=== PATIENT | female | born 1955 | race American Indian/Alaskan Native ===

== ENCOUNTER 2021-08-04 13:49 | Inpatient (IN) | payer MEDICARE, OTHER ==
--- NOTE | 2021-08-04 14:20 | Emergency Department Report ---
ED General Adult HPI - General Stated complaint: HEMOGLOBIN LOW, ABD PAIN, ELEVATED BP Time Seen by Provider: 08/04/21 14:08 - History of Present Illness Initial comments: Patient presents from dialysis by ambulance secondary to a low blood count, elevated blood pressure, and left leg pain. While getting dialysis today, the staff noticed that her blood count was around 7. EMS states that it was her hemoglobin that was a 7. The patient was noted to have elevated blood pressure in the 200/100 range. She was complaining of left leg pain that was abrupt onset. Ultimately, they withdrew approximately 1.6 L of fluid, stop dialysis, and transported the patient here. Upon arrival, she is complaining of left leg pain. Pain was abrupt onset. There is no nausea or vomiting. There is no diarrhea. Pain does not radiate or migrate. It is sharp and stabbing. She has been anemic before. She states that that is not surprising to her. She is not having chest pain or shortness of breath. She states that she was told she needed a blood transfusion by the doctor at dialysis today. - Related Data Allergies Allergy/AdvReac Type Severity Reaction Status Date / Time codeine Allergy Unknown Verified 08/04/21 14:43 Iodinated Contrast Media Allergy Unknown Verified 08/04/21 14:43 iodine Allergy Unknown Verified 08/04/21 14:43 ED Review of Systems ROS: Stated complaint: HEMOGLOBIN LOW, ABD PAIN, ELEVATED BP Other details as noted in HPI Comment: All other systems reviewed and negative Constitutional: denies: fever Eyes: denies: eye pain ENT: denies: throat pain Respiratory: denies: cough Cardiovascular: denies: chest pain Endocrine: denies: unexplained weight loss Gastrointestinal: denies: vomiting, diarrhea Musculoskeletal: as per HPI Skin: denies: rash Neurological: denies: headache Hematological/Lymphatic: denies: easy bruising ED Past Medical Hx - Past Medical History Hx Hypertension: Yes Hx Renal Disease: Yes (On dialysis) Additional medical history: Anemia - Surgical History Past Surgical History?: Yes Additional Surgical History: AV fistula - Family History Family history: hypertension ED Physical Exam - General Limitations: No Limitations, Other (Pulse ox by EMS was noted and normal.) General appearance: alert, in distress (Mild to moderate discomfort) - Head Head exam: Present: atraumatic, normocephalic, normal inspection - Eye Eye exam: Present: normal appearance, EOMI. Absent: scleral icterus - ENT ENT exam: Present: normal exam, mucous membranes dry, normal external ear exam - Neck Neck exam: Present: normal inspection. Absent: meningismus - Respiratory Respiratory exam: Present: normal lung sounds bilaterally. Absent: respiratory distress - Cardiovascular Cardiovascular Exam: Present: regular rate, normal rhythm - GI/Abdominal GI/Abdominal exam: Present: soft. Absent: tenderness - Extremities Exam Extremities exam: Present: normal capillary refill, other (AV fistula with good thrill and bruit). Absent: calf tenderness - Back Exam Back exam: Present: tenderness (There is mild left lateral abdominal wall and side tenderness). Absent: CVA tenderness (R), CVA tenderness (L) - Neurological Exam Neurological exam: Present: alert, oriented X3, CN II-XII intact. Absent: motor sensory deficit - Psychiatric Psychiatric exam: Present: normal affect, normal mood - Skin Skin exam: Present: warm, dry ED Course Vital Signs 08/04/21 08/04/21 14:43 15:16 Temperature 98 F Pulse Rate 85 84 Respiratory 16 16 Rate Blood Pressure 241/108 Blood Pressure 233/92 [Left] O2 Sat by Pulse 95 94 Oximetry - Reevaluation(s) Reevaluation #1: 08/04/21 14:19 EMS was met upon arrival. IV labs ordered. Old records reviewed. Reevaluation #2: 08/04/21 15:14 Labs are pending. Reevaluation #3: 08/04/21 15:46 CBC was noted. We will proceed with admission. ED Medical Decision Making - Lab Data Result diagrams: 08/04/21 15:25 Rhythm strip: Normal sinus rhythm without ectopy per monitor observe 10 seconds. - Medical Decision Making Patient presented from dialysis secondary to flank pain, hypertension, and anemia. She was found and confirmed to have a hemoglobin of seven. Her supervisor [employer] wanted her transfused. Etiology for the left leg pain is unclear. Patient does not have any abdominal tenderness suggestive of diverticulitis. She does not appear to be septic or toxic per there is no pulsatile mass suggestive of referred pain from a AAA. Hypertension has improved and she is not hyper tensive. We will continue to monitor. Critical Care Time: No Critical care attestation.: If time is entered above; I have spent that time in minutes in the direct care of this critically ill patient, excluding procedure time. ED Disposition Clinical Impression: Left flank pain, ESRD (end stage renal disease) on dialysis, Uncontrolled hypertension Anemia, chronic renal failure Qualifiers: Chronic kidney disease stage: stage 5 Qualified Code(s): N18.5 - Chronic kidney disease, stage 5; D63.1 - Anemia in chronic kidney disease Disposition: 09 ADMITTED INPATIENT Is pt being admited?: Yes Condition: Stable Instructions: Hypertension (ED)
[2021-08-04] MEDS ORDERED: fentaNYL 100 MCG/2 ML INJ ONE (14:53)
[2021-08-04] MEDS ORDERED: fentaNYL 100 MCG/2 ML INJ IV NR (15:00)
[2021-08-04] MEDS ORDERED: hydrALAZINE 20 MG/1 ML INJ IV ONE ×3 (15:21→22:10)
[2021-08-04 15:38] LABS: Hematocrit 21.6 % (30.3-42.9); Mean Corpuscular HGB Conc 32 % (30-34); Mean Corpuscular Volume 82 fl (79-97); Platelet Count 259 K/mm3 (140-440); Red Blood Count 2.64 M/mm3 (3.65-5.03); Red Cell Distribution Width 17.7 % (13.2-15.2)
[2021-08-04] MEDS ORDERED: MORPHINE 4 MG/1 ML INJ IV ONE (15:54)
[2021-08-04 15:56] LABS: Calcium 9.4 mg/dL (8.4-10.2)
[2021-08-04] MEDS ORDERED: SODIUM CHLORIDE 0.9% 500 ML 500 ML IV ONE (16:05)
[2021-08-04] MEDS ORDERED: guaiFENesin DM 200/20 MG ORAL LIQD 10 ML PO PRN (21:11)
[2021-08-04] MEDS ORDERED: hydrALAZINE 20 MG/1 ML INJ IV PRN ×2 (22:11→23:15)
[2021-08-04] MEDS ORDERED: MORPHINE 2 MG/1 ML INJ IV ONE (22:50)
[2021-08-04] MEDS ORDERED: METOCLOPRAMIDE 10 MG/2 ML INJ IV PRN (23:08)
[2021-08-04] MEDS ORDERED: ACETAMINOPHEN 325 MG TAB PO PRN (23:08)
[2021-08-04] MEDS ORDERED: oxyCODONE /ACETAMINOPHEN 5-325MG TAB PO PRN (23:08)
[2021-08-04] MEDS ORDERED: ONDANSETRON 4 MG/2 ML INJ IV PRN (23:08)
--- NOTE | 2021-08-04 23:16 | History and Physical Report ---
History of Present Illness Date of examination: 08/04/21 Date of admission: 08/04/21 15:47 Chief complaint: Uncontrolled blood Low hemoglobin and hematocrit History of present illness: 66-year-old female with history of end-stage renal disease, hypertension and hyperlipidemia sent from the dialysis center for low blood count with hemoglobin of seven. Patient was also noted to have a high blood pressure of around 240/RN 10. Patient is also complaining of left. Patient underwent dialysis and 1.6 L of fluid was withdrawn. Because of the left leg pain with abrupt onset patient was sent to the emergency room for evaluation. In the emergency room patient's blood pressure was 240/110. Patient being admitted for low hemoglobin and hematocrit and uncontrolled blood pressure. No chest pain. No cough. No syncope. No focal deficits. No nausea or vomiting. No fever or chills. - Past Medical History --Hypertension: Yes --Renal Disease: Yes (On dialysis) Additional medical history: Anemia - Surgical History Past Surgical History?: Yes Additional Surgical History: AV fistula - Family History Family history: hypertension -Social history no smoking or alcohol. -Review of Systems ROS: Stated complaint: HEMOGLOBIN LOW, ABD PAIN, ELEVATED BP Other details as noted in HPI Comment: All other systems reviewed and negative Constitutional: denies: fever Eyes: denies: eye pain ENT: denies: throat pain Respiratory: denies: cough Cardiovascular: denies: chest pain Endocrine: denies: unexplained weight loss Gastrointestinal: denies: vomiting, diarrhea Musculoskeletal: as per HPI Skin: denies: rash Neurological: denies: headache Hematological/Lymphatic: denies: easy bruising Medications and Allergies Allergies Allergy/AdvReac Type Severity Reaction Status Date / Time codeine Allergy Unknown Verified 08/04/21 14:43 Iodinated Contrast Media Allergy Unknown Verified 08/04/21 14:43 iodine Allergy Unknown Verified 08/04/21 14:43 Home Medications Medication Instructions Recorded Confirmed Last Taken Type Acetaminophen 500 mg PO Q8H PRN 08/04/21 08/04/21 Unknown History Amoxicillin [Trimox CAP] 500 mg PO QDAY 08/04/21 08/04/21 Unknown History Aspirin EC [Halfprin EC] 81 mg PO QDAY 08/04/21 08/04/21 Unknown History Atorvastatin Calcium [Lipitor] 80 mg PO QDAY 08/04/21 08/04/21 Unknown History Calcium Acetate 1,334 mg PO TID 08/04/21 08/04/21 Unknown History Isosorbide Mononitrate [Isosorbide 60 mg PO QDAY 08/04/21 08/04/21 Unknown History Mononitrate ER] carvediloL [Coreg] 25 mg PO BID 08/04/21 08/04/21 Unknown History hydrALAZINE [Apresoline TAB] 100 mg PO TID 08/04/21 08/04/21 Unknown History Active Meds: Active Medications Guaifenesin (Guaifenesin Dm 200/20 Mg Oral Liqd 10 Ml) 10 ml PO Q4H PRN PRN Reason: Cough Last Admin: 08/04/21 21:14 Dose: 10 ml Documented by: Hydralazine HCl (Hydralazine 20 Mg/1 Ml Inj) 10 mg IV Q4HR PRN PRN Reason: Hypertension Exam - Constitutional Vitals: Temp Pulse Resp BP Pulse Ox 98.2 F 80 23 216/99 100 08/04/21 22:21 08/04/21 23:00 08/04/21 23:00 08/04/21 23:00 08/04/21 23:00 General appearance: Present: no acute distress, well-nourished - EENT Eyes: Present: PERRL ENT: hearing intact, clear oral mucosa - Neck Neck: Present: supple, normal ROM - Respiratory Respiratory effort: normal Respiratory: bilateral: CTA - Cardiovascular Heart rate: 78 Rhythm: regular Heart Sounds: Present: S1 & S2. Absent: rub, click - Extremities Extremities: pulses symmetrical, No edema Peripheral Pulses: within normal limits - Abdominal General gastrointestinal: Present: soft, non-tender, non-distended, normal bowel sounds Female genitourinary: Present: normal - Integumentary Integumentary: Present: clear, warm, dry - Musculoskeletal Musculoskeletal: gait normal, strength equal bilaterally - Psychiatric Psychiatric: appropriate mood/affect, intact judgment & insight - Neurologic Neurologic: CNII-XII intact, moves all extremities HEART Score - HEART Score History: Moderately suspicious Age: 45-65 Risk factors: > 3 risk factors or hx of atherosclerotic disease Troponin: 1-3x normal limit - Critical Actions Critical Actions: 4-6 pts:12-16.6% risk of adverse cardiac event. Should be admitted Results - Labs CBC & Chem 7: 08/05/21 04:28 08/05/21 04:28 Labs: Laboratory Last Values WBC 7.1 K/mm3 (4.5-11.0) 08/04/21 15:25 RBC 2.64 M/mm3 (3.65-5.03) L 08/04/21 15:25 Hgb 7.0 gm/dl (10.1-14.3) L 08/04/21 15:25 Hct 21.6 % (30.3-42.9) L 08/04/21 15:25 MCV 82 fl (79-97) 08/04/21 15:25 MCH 27 pg (28-32) L 08/04/21 15:25 MCHC 32 % (30-34) 08/04/21 15:25 RDW 17.7 % (13.2-15.2) H 08/04/21 15:25 Plt Count 259 K/mm3 (140-440) 08/04/21 15:25 Sodium 139 mmol/L (137-145) 08/04/21 15:25 Potassium 4.6 mmol/L (3.6-5.0) 08/04/21 15:25 Chloride 100.8 mmol/L (98-107) 08/04/21 15:25 Carbon Dioxide 26 mmol/L (22-30) 08/04/21 15:25 Anion Gap 17 mmol/L 08/04/21 15:25 BUN 17 mg/dL (7-17) 08/04/21 15:25 Creatinine 5.2 mg/dL (0.6-1.2) H 08/04/21 15:25 Estimated GFR 8 ml/min 08/04/21 15:25 BUN/Creatinine Ratio 3 % 08/04/21 15:25 Glucose 89 mg/dL (65-100) 08/04/21 15:25 Calcium 9.4 mg/dL (8.4-10.2) 08/04/21 15:25 Blood Type O POSITIVE 08/04/21 17:49 Antibody Screen Negative 08/04/21 17:49 Crossmatch See Detail 08/04/21 17:49 Short CBC 08/04/21 08/05/21 Range/Units 15:25 04:28 WBC 7.1 6.8 (4.5-11.0) K/mm3 Hgb 7.0 L 7.8 L (10.1-14.3) gm/dl Hct 21.6 L 24.2 L (30.3-42.9) % Plt Count 259 237 (140-440) K/mm3 BMP 08/04/21 08/05/21 15:25 04:28 Sodium 139 141 Potassium 4.6 5.1 H Chloride 100.8 101.8 Carbon Dioxide 26 27 BUN 17 21 H Creatinine 5.2 H 6.6 H Glucose 89 94 Calcium 9.4 9.5 Liver Function 08/05/21 Range/Units 04:28 Total Bilirubin 0.30 (0.1-1.2) mg/dL AST 12 (5-40) units/L ALT 6 L (7-56) units/L Alkaline Phosphatase 136 H (35-129) units/L Albumin 3.5 L (3.9-5) g/dL - Imaging and Cardiology EKG: report reviewed (Sinus rhythm no acute ST-T wave changes) Assessment and Plan Advance Directives: Yes (Full code) VTE prophylaxis?: Chemical Plan of care discussed with patient/family: Yes - Patient Problems (1) Hypertensive emergency Current Visit: Yes Status: Acute Plan to address problem: Patient is noncompliant. Patient is initiated on her home antihypertensives including hydralazine and carvedilol. Patient initiated on valsartan 160 every 12. Hydralazine IV 10 mg every 3 as needed. (2) Anemia, chronic renal failure Current Visit: Yes Status: Chronic Qualifiers: Chronic kidney disease stage: stage 5 Qualified Code(s): N18.5 - Chronic kidney disease, stage 5; D63.1 - Anemia in chronic kidney disease Plan to address problem: Patient to be transfused 1 unit of packed red blood cells. (3) Symptomatic anemia Current Visit: Yes Status: Acute Plan to address problem: Patient will transfuse 1 unit of packed red blood cells. (4) ESRD (end stage renal disease) on dialysis Current Visit: Yes Status: Chronic Plan to address problem: Continue hemodialysis as per schedule. Nephrology consulted. (5) Hyperlipidemia Current Visit: Yes Status: Chronic Qualifiers: Hyperlipidemia type: mixed hyperlipidemia Qualified Code(s): E78.2 - Mixed hyperlipidemia Plan to address problem: Continue statins. (6) DVT prophylaxis Current Visit: Yes Status: Acute Plan to address problem: On heparin and GI prophylaxis.
[2021-08-05] MEDS ORDERED: SODIUM CHLORIDE 0.9% 500 ML 500 ML IV ONE (00:12)
[2021-08-05] MEDS: HYDROmorphone 1 MG/1 ML INJ IV PRN ×3 (03:12→17:50)
[2021-08-05 04:59] LABS: Basophils # (Auto) 0.1 K/mm3 (0.0-0.1); Basophils % (Auto) 1.3 % (0.0-1.8); Eosinophils # (Auto) 0.3 K/mm3 (0.0-0.4); Eosinophils % (Auto) 4.3 % (0.0-4.3); Hematocrit 24.2 % (30.3-42.9); Hemoglobin 7.8 gm/dl (10.1-14.3); Lymphocytes # (Auto) 1.8 K/mm3 (1.2-5.4); Lymphocytes % (Auto) 25.8 % (13.4-35.0); Mean Corpuscular HGB Conc 32 % (30-34); Mean Corpuscular Volume 83 fl (79-97); Monocytes # (Auto) 0.6 K/mm3 (0.0-0.8); Platelet Count 237 K/mm3 (140-440); Red Cell Distribution Width 17.7 % (13.2-15.2)
[2021-08-05 05:18] LABS: Albumin 3.5 g/dL (3.9-5); Calcium 9.5 mg/dL (8.4-10.2)
[2021-08-05] MEDS ORDERED: NON-FORMULARY EACH (Calcium Acetate [Calcium Acetate] 667 MG Tablet) PO SCH (08:00)
[2021-08-05] MEDS ORDERED: NON-FORMULARY EACH (Atorvastatin Calcium [Lipitor] 80 MG Tablet) PO SCH (10:00)
[2021-08-05] MEDS: amLODIPine 10 MG TAB PO SCH ×2 (10:51→10:54)
[2021-08-05] MEDS: VALSARTAN 160MG TAB PO SCH ×3 (10:52→22:34)
[2021-08-05] MEDS: FAMOTIDINE 10 MG TAB PO SCH ×2 (10:54→22:33)
[2021-08-05] MEDS: carvediloL 25 MG TAB PO SCH ×2 (10:54→22:33)
[2021-08-05] MEDS: ASPIRIN EC 81 MG TAB PO SCH (10:54)
[2021-08-05] MEDS: HEPARIN 5,000 UNIT/1 ML VIAL SUB-Q SCH ×2 (10:54→22:34)
[2021-08-05] MEDS: hydrALAZINE 100 MG TAB PO SCH ×3 (10:59→22:37)
[2021-08-05] MEDS: CALCIUM ACETATE 667 MG CAP PO SCH ×3 (10:59→22:37)
--- NOTE | 2021-08-05 13:14 | Consultation ---
History of Present Illness - Reason for Consult Consult date: 08/05/21 end stage renal disease - History of Present Illness This is a 66 year old female who presented to the hospital yesterday from her dialysis clinic for evaluation of HGB of 7.0. Patient states she currently dialyzes at [facility] and will be there for 3 weeks before returning back to [facility]. On evaluation in E.R patient's HGB was 7.0. She has received 1 unit of PRBC. Patient's systolic blood pressure was also noted to be elevated in the 200's. Patient reports has chronic uncontrolled Hypertension. Denies skipping any medication doses. Patient states she completed most of her dialysis treatment yesterday. She is on T,T,S schedule. Denies shortness of breath, swelling or nausea or vomiting. Has functional left AVF. We are being consulted for management of this patient's ESRD. Past History Past Medical History: dialysis, ESRD, hypertension Past Surgical History: Other (Left AVF placement) Social history: no significant social history Family history: no significant family history Medications and Allergies Allergies Allergy/AdvReac Type Severity Reaction Status Date / Time codeine Allergy Unknown Verified 08/04/21 14:43 Iodinated Contrast Media Allergy Unknown Verified 08/04/21 14:43 iodine Allergy Unknown Verified 08/04/21 14:43 Home Medications Medication Instructions Recorded Confirmed Last Taken Type Acetaminophen 500 mg PO Q8H PRN 08/04/21 08/04/21 Unknown History Amoxicillin [Trimox CAP] 500 mg PO QDAY 08/04/21 08/04/21 Unknown History Aspirin EC [Halfprin EC] 81 mg PO QDAY 08/04/21 08/04/21 Unknown History Atorvastatin Calcium [Lipitor] 80 mg PO QDAY 08/04/21 08/04/21 Unknown History Calcium Acetate 1,334 mg PO TID 08/04/21 08/04/21 Unknown History Isosorbide Mononitrate [Isosorbide 60 mg PO QDAY 08/04/21 08/04/21 Unknown History Mononitrate ER] carvediloL [Coreg] 25 mg PO BID 08/04/21 08/04/21 Unknown History hydrALAZINE [Apresoline TAB] 100 mg PO TID 08/04/21 08/04/21 Unknown History Active Meds: Active Medications Acetaminophen (Acetaminophen 325 Mg Tab) 650 mg PO Q4H PRN PRN Reason: Pain MILD(1-3)/Fever >100.5/STARR Amlodipine Besylate (Amlodipine 10 Mg Tab) 10 mg PO QDAY [facility] Last Admin: 08/05/21 10:54 Dose: 10 mg Documented by: Aspirin (Aspirin Ec 81 Mg Tab) 81 mg PO QDAY [facility] Last Admin: 08/05/21 10:54 Dose: 81 mg Documented by: Atorvastatin Calcium (Atorvastatin 40 Mg Tab) 80 mg PO QHS [facility] Calcium Acetate (Calcium Acetate 667 Mg Cap) 1,334 mg PO TID [facility] Last Admin: 08/05/21 10:59 Dose: 1,334 mg Documented by: Carvedilol (Carvedilol 25 Mg Tab) 25 mg PO BID [facility] Last Admin: 08/05/21 10:54 Dose: 25 mg Documented by: Famotidine (Famotidine 10 Mg Tab) 10 mg PO BID [facility] Last Admin: 08/05/21 10:54 Dose: 10 mg Documented by: Guaifenesin (Guaifenesin Dm 200/20 Mg Oral Liqd 10 Ml) 10 ml PO Q4H PRN PRN Reason: Cough Last Admin: 08/04/21 21:14 Dose: 10 ml Documented by: Heparin Sodium (Porcine) (Heparin 5,000 Unit/1 Ml Vial) 5,000 unit SUB-Q Q12HR [facility] Last Admin: 08/05/21 10:54 Dose: 5,000 unit Documented by: Hydralazine HCl (Hydralazine 20 Mg/1 Ml Inj) 10 mg IV Q3H PRN PRN Reason: Blood Pressure Hydralazine HCl (Hydralazine 100 Mg Tab) 100 mg PO TID [facility] Last Admin: 08/05/21 10:59 Dose: 100 mg Documented by: Hydromorphone HCl (Hydromorphone 1 Mg/1 Ml Inj) 0.5 mg IV Q3H PRN PRN Reason: Pain , Severe (7-10) Last Admin: 08/05/21 08:36 Dose: 0.5 mg Documented by: Isosorbide Mononitrate (Isosorbide Mononitrate Er 60 Mg Tab) 60 mg PO QDAY [facility] Last Admin: 08/05/21 10:54 Dose: 60 mg Documented by: Metoclopramide HCl (Metoclopramide 10 Mg/2 Ml Inj) 5 mg IV Q6H PRN PRN Reason: Nausea And Vomiting Ondansetron HCl (Ondansetron 4 Mg/2 Ml Inj) 4 mg IV Q8H PRN PRN Reason: Nausea And Vomiting Oxycodone/Acetaminophen (Oxycodone /Acetaminophen 5-325mg Tab) 1 tab PO Q6H PRN PRN Reason: Pain, Moderate (4-6) Sodium Chloride (Sodium Chloride 0.9% 10 Ml Flush Syringe) 10 ml IV BID [facility] Last Admin: 08/05/21 10:55 Dose: 10 ml Documented by: Sodium Chloride (Sodium Chloride 0.9% 10 Ml Flush Syringe) 10 ml IV PRN PRN PRN Reason: LINE FLUSH Valsartan (Valsartan 160mg Tab) 160 mg PO Q12HR [facility] Last Admin: 08/05/21 10:54 Dose: 160 mg Documented by: Review of Systems Constitutional: fatigue, no weight loss, no weight gain, no fever, no chills, no sweats Ears, nose, mouth and throat: no ear pain, no ear discharge, no tinnitis, no decreased hearing, no nose pain, no nasal congestion Cardiovascular: no chest pain, no orthopnea, no palpitations, no rapid/irregular heart beat, no edema, no syncope, no lightheadedness, no shortness of breath Respiratory: no cough, no cough with sputum, no excessive sputum, no hemoptysis, no shortness of breath, no dyspnea on exertion Gastrointestinal: no abdominal pain, no nausea, no vomiting, no diarrhea, no constipation, no hematemesis Genitourinary Female: no dysmenorrhea, no pelvic pain, no flank pain, no me norrhagia, no dysuria, no urinary frequency, no urgency Musculoskeletal: no neck stiffness, no neck pain, no shooting arm pain, no arm numbness/tingling, no low back pain, no shooting leg pain Integumentary: no rash, no pruritis, no redness, no sores, no wounds Neurological: no head injury, no transient paralysis, no paralysis, no parathesias, no numbness, no tingling, no seizures Psychiatric: no anxiety, no memory loss, no change in sleep habits, no sleep disturbances, no insomnia, no hypersomnia, no change in appetite Endocrine: no cold intolerance, no heat intolerance, no polyphagia, no excessive thirst, no polydipsia Hematologic/Lymphatic: no easy bruising, no easy bleeding, no lymphadenopathy, no lymphedema Exam - Vital Signs Vital signs: Vital Signs Temp Pulse Resp BP Pulse Ox 98 F 85 16 241/108 95 08/04/21 14:43 08/04/21 14:43 08/04/21 14:43 08/04/21 14:43 08/04/21 14:43 - General Appearance General appearance: well-developed, appears stated age EENT: ATNC, PERRL, hearing intact, vision intact Neck: Present: neck supple Respiratory: Decreased Breath Sounds Heart: S1S2 Gastrointestinal: Present: normoactive bowel sounds Integumentary: warm and dry Neurologic: alert and oriented x3 Musculoskeletal: Present: other (No edema. Left AVF has positive bruit and thrill) Results - Lab Results 08/05/21 04:28 08/05/21 04:28 Most recent lab results Calcium 9.5 mg/dL (8.4-10.2) 08/05/21 04:28 Assessment and Plan Assessment: End Stage Renal Disease on hemodialysis S/P Hypertension Emergency Hypertension Anemia Plan: Hemodialysis tomorrow for UF and clearance, on T,,S schedule Patient states she cannot dialyze without lidocaine cream to AVF site- ordered lidocaine/prilocaine cream to be placed on AVF site 30 min-1 hour prior to HD. Anemia-S/P 1 unit of PRBC transfusion yesterday, HGB came up to 7.8 today. Monitor H/H Fluid restriction of 1 liter per day Hypertension, Improving- recent BP 134/73. Continue on anti-hypertensive agents Renally dose medications Obtain daily weights Assess dialysis needs daily Plan of care reviewed by Dr. Portillo
--- NOTE | 2021-08-05 14:07 | Progress Note ---
Assessment and Plan Assessment and plan: 66-year-old female with history of end-stage renal disease, hypertension and hyperlipidemia sent from the dialysis center for low blood count with hemoglobin of 7 who was found to be in hypertensive emergency. #Hypertensive emergency #Counseling on medication compliance/adherence -Patient presented with blood pressures >220/100 -Patient endorses compliance; however, it seems highly unlikely -Home regimen: Carvedilol 25 mg twice daily, p.o. hydralazine 100 mg 3 times d aily, and isosorbide mononitrate 60 mg daily -Patient initiated on valsartan 160 mg every 12 hours and IV hydralazine 10 mg every 3 hours as needed -Patient unable to perform full hemodialysis session, leading to worsening hypertension. Nephrology consulted; appreciate recs. -Counseled patient about importance of medication compliance associated with uncontrolled hypertension. Patient continues to endorse medication compliance at home. -Time: +20 minutes #Acute hypoxic respiratory failure -Patient does not require home oxygen -currently on 2-3 L nasal cannula -Likely in the setting of uncontrolled hypertension/hypertensive emergency -Continue to wean as tolerated #Symptomatic anemia #Anemia of chronic disease -Hemoglobin 7.8 (7.0 on presentation) s/p transfusion of 1 unit packed RBC -Continue to monitor hemoglobin. Transfuse if hemoglobin less than 7 or patient becomes symptomatic. -Can consider initiation of Epogen with hemodialysis. #ESRD on hemodialysis -AV fistula in left upper extremity with palpable thrill -Nephrology consulted; appreciate recs -Currently on TTS schedule in outpatient setting #Hyperlipidemia -Continue home atorvastatin #DVT prophylaxis -Continue subcutaneous heparin 5000 units every 8 hours #Discharge planning -Pending coronavirus PCR to allow patient to return back to home dialysis center Disposition Plan: Continue medical management. Total Time Spent with Patient (Minutes): 30 min History Interval history: No acute events overnight. Hospitalist Physical - Constitutional Vitals: Temp Pulse Resp BP Pulse Ox 98.5 F 57 L 20 209/96 97 08/05/21 07:36 08/05/21 05:45 08/05/21 07:36 08/05/21 05:45 08/05/21 11:01 General appearance: Present: no acute distress, well-nourished - EENT Eyes: Present: PERRL, EOM intact ENT: hearing intact, clear oral mucosa, dentition normal - Neck Neck: Present: supple, normal ROM - Respiratory Respiratory effort: normal (Currently on 3 L nasal cannula) - Cardiovascular Rhythm: regular Heart Sounds: Present: S1 & S2 - Extremities Extremities: no ischemia, pulses intact, pulses symmetrical, No edema, normal te mperature, normal color, abnormal (AV fistula in left upper extremity with palpable thrill) Peripheral Pulses: within normal limits - Abdominal General gastrointestinal: soft, non-tender, non-distended, normal bowel sounds - Integumentary Integumentary: Present: clear, warm, dry - Psychiatric Psychiatric: appropriate mood/affect, intact judgment & insight, memory intact, cooperative - Neurologic Neurologic: CNII-XII intact, moves all extremities - Allied Health Allied health notes reviewed: nursing HEART Score - HEART Score Age: 45-65 Risk factors: > 3 risk factors or hx of atherosclerotic disease Troponin: 1-3x normal limit - Critical Actions Critical Actions: 4-6 pts:12-16.6% risk of adverse cardiac event. Should be admitted Results - Labs CBC & Chem 7: 08/05/21 04:28 08/05/21 04:28 Labs: Laboratory Last Values WBC 6.8 K/mm3 (4.5-11.0) 08/05/21 04:28 RBC 2.90 M/mm3 (3.65-5.03) L 08/05/21 04:28 Hgb 7.8 gm/dl (10.1-14.3) L 08/05/21 04:28 Hct 24.2 % (30.3-42.9) L 08/05/21 04:28 MCV 83 fl (79-97) 08/05/21 04:28 MCH 27 pg (28-32) L 08/05/21 04:28 MCHC 32 % (30-34) 08/05/21 04:28 RDW 17.7 % (13.2-15.2) H 08/05/21 04:28 Plt Count 237 K/mm3 (140-440) 08/05/21 04:28 Lymph % (Auto) 25.8 % (13.4-35.0) 08/05/21 04:28 [place] % (Auto) 9.0 % (0.0-7.3) H 08/05/21 04:28 Eos % (Auto) 4.3 % (0.0-4.3) 08/05/21 04:28 Baso % (Auto) 1.3 % (0.0-1.8) 08/05/21 04:28 Lymph # (Auto) 1.8 K/mm3 (1.2-5.4) 08/05/21 04:28 [place] # (Auto) 0.6 K/mm3 (0.0-0.8) 08/05/21 04:28 Eos # (Auto) 0.3 K/mm3 (0.0-0.4) 08/05/21 04:28 Baso # (Auto) 0.1 K/mm3 (0.0-0.1) 08/05/21 04:28 Seg Neutrophils % 59.6 % (40.0-70.0) 08/05/21 04:28 Seg Neutrophils # 4.1 K/mm3 (1.8-7.7) 08/05/21 04:28 Sodium 141 mmol/L (137-145) 08/05/21 04:28 Potassium 5.1 mmol/L (3.6-5.0) H 08/05/21 04:28 Chloride 101.8 mmol/L (98-107) 08/05/21 04:28 Carbon Dioxide 27 mmol/L (22-30) 08/05/21 04:28 Anion Gap 17 mmol/L 08/05/21 04:28 BUN 21 mg/dL (7-17) H 08/05/21 04:28 Creatinine 6.6 mg/dL (0.6-1.2) H 08/05/21 04:28 Estimated GFR 6 ml/min 08/05/21 04:28 BUN/Creatinine Ratio 3 % 08/05/21 04:28 Glucose 94 mg/dL (65-100) 08/05/21 04:28 Calcium 9.5 mg/dL (8.4-10.2) 08/05/21 04:28 Total Bilirubin 0.30 mg/dL (0.1-1.2) 08/05/21 04:28 AST 12 units/L (5-40) 08/05/21 04:28 ALT 6 units/L (7-56) L 08/05/21 04:28 Alkaline Phosphatase 136 units/L (35-129) H 08/05/21 04:28 Total Protein 6.4 g/dL (6.3-8.2) 08/05/21 04:28 Albumin 3.5 g/dL (3.9-5) L 08/05/21 04:28 Albumin/Globulin Ratio 1.2 % 08/05/21 04:28 Blood Type O POSITIVE 08/04/21 17:49 Antibody Screen Negative 08/04/21 17:49 Crossmatch See Detail 08/04/21 17:49 Active Medications - Current Medications Current Medications: Generic Name Dose Route Start Last Admin Trade Name Freq PRN Reason Stop Dose Admin Acetaminophen 650 mg 08/04/21 23:08 Acetaminophen 325 Mg Tab PO Q4H PRN Pain MILD(1-3)/Fever >100.5/STARR Amlodipine Besylate 10 mg 08/04/21 23:14 08/05/21 10:54 Amlodipine 10 Mg Tab PO 10 mg QDAY DAVID Administration Aspirin 81 mg 08/05/21 10:00 08/05/21 10:54 Aspirin Ec 81 Mg Tab PO 81 mg QDAY DAVID Administration Atorvastatin Calcium 80 mg 08/05/21 22:00 Atorvastatin 40 Mg Tab PO QHS DAVID Calcium Acetate 1,334 mg 08/05/21 08:00 08/05/21 10:59 Calcium Acetate 667 Mg Cap PO 1,334 mg TID DAVID Administration Carvedilol 25 mg 08/05/21 10:00 08/05/21 10:54 Carvedilol 25 Mg Tab PO 25 mg BID DAVID Administration Famotidine 10 mg 08/05/21 10:00 08/05/21 10:54 Famotidine 10 Mg Tab PO 10 mg BID DAVID Administration Guaifenesin 10 ml 08/04/21 21:11 08/04/21 21:14 Guaifenesin Dm 200/20 Mg Oral Liqd 10 Ml PO 10 ml Q4H PRN Administration Cough Heparin Sodium (Porcine) 5,000 unit 08/05/21 10:00 08/05/21 10:54 Heparin 5,000 Unit/1 Ml Vial SUB-Q 5,000 unit Q12HR DAVID Administration Hydralazine HCl 10 mg 08/04/21 23:15 Hydralazine 20 Mg/1 Ml Inj IV Q3H PRN Blood Pressure Hydralazine HCl 100 mg 08/05/21 08:00 08/05/21 10:59 Hydralazine 100 Mg Tab PO 100 mg TID DAVID Administration Hydromorphone HCl 0.5 mg 08/04/21 23:08 08/05/21 08:36 Hydromorphone 1 Mg/1 Ml Inj IV 0.5 mg Q3H PRN Administration Pain , Severe (7-10) Isosorbide Mononitrate 60 mg 08/05/21 10:00 08/05/21 10:54 Isosorbide Mononitrate Er 60 Mg Tab PO 60 mg QDAY DAVID Administration Metoclopramide HCl 5 mg 08/04/21 23:08 Metoclopramide 10 Mg/2 Ml Inj IV Q6H PRN Nausea And Vomiting Ondansetron HCl 4 mg 08/04/21 23:08 Ondansetron 4 Mg/2 Ml Inj IV Q8H PRN Nausea And Vomiting Oxycodone/Acetaminophen 1 tab 08/04/21 23:08 Oxycodone /Acetaminophen 5-325mg Tab PO Q6H PRN Pain, Moderate (4-6) Sodium Chloride 10 ml 08/05/21 10:00 08/05/21 10:55 Sodium Chloride 0.9% 10 Ml Flush Syringe IV 10 ml BID DAVID Administration Sodium Chloride 10 ml 08/04/21 23:08 Sodium Chloride 0.9% 10 Ml Flush Syringe IV PRN PRN LINE FLUSH Valsartan 160 mg 08/04/21 23:45 08/05/21 10:54 Valsartan 160mg Tab PO 160 mg Q12HR DAVID Administration
[2021-08-05] MEDS ORDERED: EMLA CREAM 5 GM TP ONE (16:00)
[2021-08-06 05:51] LABS: Basophils # (Auto) 0.1 K/mm3 (0.0-0.1); Basophils % (Auto) 1.3 % (0.0-1.8); Eosinophils # (Auto) 0.2 K/mm3 (0.0-0.4); Eosinophils % (Auto) 4.1 % (0.0-4.3); Hematocrit 23.4 % (30.3-42.9); Hemoglobin 7.4 gm/dl (10.1-14.3); Lymphocytes # (Auto) 1.6 K/mm3 (1.2-5.4); Lymphocytes % (Auto) 31.4 % (13.4-35.0); Mean Corpuscular HGB Conc 32 % (30-34); Mean Corpuscular Volume 86 fl (79-97); Monocytes # (Auto) 0.6 K/mm3 (0.0-0.8); Monocytes % (Auto) 11.4 % (0.0-7.3); Platelet Count 217 K/mm3 (140-440); Red Cell Distribution Width 17.7 % (13.2-15.2)
[2021-08-06 06:07] LABS: Calcium 9.1 mg/dL (8.4-10.2)
[2021-08-06 07:49] LABS: Hepatitis C Virus Antibody Non-Reactive (NonReactive)
[2021-08-06 08:09] LABS: Hepatitis B Surface Antigen Nonreactive (Negative)
[2021-08-06] MEDS: hydrALAZINE 100 MG TAB PO SCH ×2 (08:58→14:30)
[2021-08-06] MEDS: CALCIUM ACETATE 667 MG CAP PO SCH (08:58)
[2021-08-06] MEDS ORDERED: EMLA CREAM 5 GM TP PRN (09:00)
--- NOTE | 2021-08-06 11:12 | Progress Note ---
Assessment and Plan End Stage Renal Disease on hemodialysis S/P Hypertension Emergency Hypertension Anemia Plan: Hemodialysis today for UF and clearance, on T,T,S schedule Fluid restriction of 1 liter per day Hypertension, Improving- recent BP 134/73. Continue on anti-hypertensive agents Renally dose medications Obtain daily weights Assess dialysis needs daily Subjective Date of service: 08/06/21 Principal diagnosis: ESRD Interval history: in HD this AM Objective - Vital Signs Vital signs: Vital Signs - 12hr 08/05/21 08/06/21 08/06/21 23:12 03:00 03:19 Temperature 98.8 F 98.2 F Pulse Rate 75 78 Respiratory 16 16 Rate Blood Pressure 162/72 190/86 O2 Sat by Pulse 95 97 95 Oximetry 08/06/21 08/06/21 08/06/21 07:29 08:36 11:05 Temperature 98.0 F Pulse Rate 79 76 Respiratory 18 Rate Blood Pressure 208/91 205/97 O2 Sat by Pulse 97 97 Oximetry - Lab 08/06/21 05:21 08/06/21 05:21 Most recent lab results Calcium 9.1 mg/dL (8.4-10.2) 08/06/21 05:21 Phosphorus 4.50 mg/dL (2.5-4.5) 08/06/21 05:21 Magnesium 1.60 mg/dL (1.7-2.3) L 08/06/21 05:21 Medications & Allergies - Medications Allergies/Adverse Reactions: Allergies codeine Allergy (Verified 08/04/21 14:43) Unknown Iodinated Contrast Media Allergy (Verified 08/04/21 14:43) Unknown iodine Allergy (Verified 08/04/21 14:43) Unknown Home Medications: Home Medications Medication Instructions Recorded Confirmed Last Taken Type Acetaminophen 500 mg PO Q8H PRN 08/04/21 08/04/21 Unknown History Amoxicillin [Trimox CAP] 500 mg PO QDAY 08/04/21 08/04/21 Unknown History Aspirin EC [Halfprin EC] 81 mg PO QDAY 08/04/21 08/04/21 Unknown History Atorvastatin Calcium [Lipitor] 80 mg PO QDAY 08/04/21 08/04/21 Unknown History Calcium Acetate 1,334 mg PO TID 08/04/21 08/04/21 Unknown History Isosorbide Mononitrate [Isosorbide 60 mg PO QDAY 08/04/21 08/04/21 Unknown History Mononitrate ER] carvediloL [Coreg] 25 mg PO BID 08/04/21 08/04/21 Unknown History hydrALAZINE [Apresoline TAB] 100 mg PO TID 08/04/21 08/04/21 Unknown History Active Medications: Generic Name Dose Route Start Last Admin Trade Name Freq PRN Reason Stop Dose Admin Acetaminophen 650 mg 08/04/21 23:08 Acetaminophen 325 Mg Tab PO Q4H PRN Pain MILD(1-3)/Fever >100.5/STARR Amlodipine Besylate 10 mg 08/04/21 23:14 08/05/21 10:54 Amlodipine 10 Mg Tab PO 10 mg QDAY DAVID Administration Aspirin 81 mg 08/05/21 10:00 08/05/21 10:54 Aspirin Ec 81 Mg Tab PO 81 mg QDAY DAVID Administration Atorvastatin Calcium 80 mg 08/05/21 22:00 08/05/21 22:33 Atorvastatin 40 Mg Tab PO Not Given QHS DAVID Calcium Acetate 1,334 mg 08/05/21 08:00 08/06/21 08:58 Calcium Acetate 667 Mg Cap PO 1,334 mg TID DAVID Administration Carvedilol 25 mg 08/05/21 10:00 08/05/21 22:33 Carvedilol 25 Mg Tab PO 25 mg BID DAVID Administration Famotidine 10 mg 08/05/21 10:00 08/05/21 22:33 Famotidine 10 Mg Tab PO 10 mg BID DAVID Administration Guaifenesin 10 ml 08/04/21 21:11 08/04/21 21:14 Guaifenesin Dm 200/20 Mg Oral Liqd 10 Ml PO 10 ml Q4H PRN Administration Cough Heparin Sodium (Porcine) 5,000 unit 08/05/21 10:00 08/05/21 22:34 Heparin 5,000 Unit/1 Ml Vial SUB-Q 5,000 unit Q12HR DAVID Administration Hydralazine HCl 10 mg 08/04/21 23:15 08/06/21 11:05 Hydralazine 20 Mg/1 Ml Inj IV 10 mg Q3H PRN Administration Blood Pressure Hydralazine HCl 100 mg 08/05/21 08:00 08/06/21 08:58 Hydralazine 100 Mg Tab PO 100 mg TID DAVID Administration Hydromorphone HCl 0.5 mg 08/04/21 23:08 08/05/21 17:50 Hydromorphone 1 Mg/1 Ml Inj IV 0.5 mg Q3H PRN Administration Pain , Severe (7-10) Isosorbide Mononitrate 60 mg 08/05/21 10:00 08/05/21 10:54 Isosorbide Mononitrate Er 60 Mg Tab PO 60 mg QDAY DAVID Administration Lidocaine/Prilocaine 1 applic 08/06/21 09:00 08/06/21 08:59 Emla Cream 5 Gm TP 1 applic [employer] PRN Administration hemodialysis Metoclopramide HCl 5 mg 08/04/21 23:08 Metoclopramide 10 Mg/2 Ml Inj IV Q6H PRN Nausea And Vomiting Ondansetron HCl 4 mg 08/04/21 23:08 Ondansetron 4 Mg/2 Ml Inj IV Q8H PRN Nausea And Vomiting Oxycodone/Acetaminophen 1 tab 08/04/21 23:08 Oxycodone /Acetaminophen 5-325mg Tab PO Q6H PRN Pain, Moderate (4-6) Sodium Chloride 10 ml 08/05/21 10:00 08/06/21 08:27 Sodium Chloride 0.9% 10 Ml Flush Syringe IV Not Given BID DAVID Sodium Chloride 10 ml 08/04/21 23:08 Sodium Chloride 0.9% 10 Ml Flush Syringe IV PRN PRN LINE FLUSH Valsartan 160 mg 08/04/21 23:45 08/05/21 22:34 Valsartan 160mg Tab PO 160 mg Q12HR DAVID Administration
[2021-08-06] MEDS ORDERED: CALCIUM ACETATE 667 MG CAP PO SCH (12:00)
[2021-08-06] MEDS: amLODIPine 10 MG TAB PO SCH (12:20)
[2021-08-06] MEDS: carvediloL 25 MG TAB PO SCH (12:20)
[2021-08-06] MEDS: ASPIRIN EC 81 MG TAB PO SCH (12:20)
[2021-08-06] MEDS: VALSARTAN 160MG TAB PO SCH (12:20)
[2021-08-06] MEDS: FAMOTIDINE 10 MG TAB PO SCH (12:20)
[2021-08-06] MEDS: HEPARIN 5,000 UNIT/1 ML VIAL SUB-Q SCH (12:21)
--- NOTE | 2021-08-06 13:07 | Progress Note ---
Assessment and Plan Assessment and plan: 66-year-old female with history of end-stage renal disease, hypertension and hyperlipidemia sent from the dialysis center for low blood count with hemoglobin of 7 who was found to be in hypertensive emergency. #Hypertensive emergency #Counseling on medication compliance/adherence -Patient presented with blood pressures >220/100 -Patient endorses compliance; however, it seems highly unlikely -Home regimen: Carvedilol 25 mg twice daily, p.o. hydralazine 100 mg 3 times d aily, and isosorbide mononitrate 60 mg daily -Patient initiated on valsartan 160 mg every 12 hours and IV hydralazine 10 mg every 3 hours as needed -Patient unable to perform full hemodialysis session, leading to worsening hypertension. Nephrology consulted; appreciate recs. -Counseled patient about importance of medication compliance associated with uncontrolled hypertension. Patient continues to endorse medication compliance at home. -Time: +20 minutes #Acute hypoxic respiratory failure-resolved -Patient does not require home oxygen -Likely in the setting of uncontrolled hypertension/hypertensive emergency -Continue to wean as tolerated #Symptomatic anemia #Anemia of chronic disease -Hemoglobin 7.8 (7.0 on presentation) s/p transfusion of 1 unit packed RBC -Continue to monitor hemoglobin. Transfuse if hemoglobin less than 7 or patient becomes symptomatic. -Can consider initiation of Epogen with hemodialysis. #ESRD on hemodialysis -AV fistula in left upper extremity with palpable thrill -Nephrology consulted; appreciate recs -Currently on TTS schedule in outpatient setting #Hyperlipidemia -Continue home atorvastatin #DVT prophylaxis -Continue subcutaneous heparin 5000 units every 8 hours #Discharge planning -Pending coronavirus PCR to allow patient to return back to home dialysis center Disposition Plan: Pending possible discharge home today Total Time Spent with Patient (Minutes): 25 History Interval history: No acute events over night. The patient denies fevers, chills, nausea, vomiting, abdominal pain, chest pain/pressure, shortness of breath, urinary symptoms, weakness, or confusion. Hospitalist Physical - Constitutional Vitals: Temp Pulse Resp BP Pulse Ox 98.4 F 77 18 191/89 100 08/06/21 10:10 08/06/21 12:15 08/06/21 10:10 08/06/21 12:15 08/06/21 10:10 General appearance: Present: no acute distress, well-nourished - EENT Eyes: Present: PERRL, EOM intact ENT: hearing intact, clear oral mucosa, dentition normal - Neck Neck: Present: supple, normal ROM - Respiratory Respiratory effort: normal - Cardiovascular Rhythm: regular Heart Sounds: Present: S1 & S2 - Extremities Extremities: no ischemia, pulses intact, pulses symmetrical, No edema, normal temperature, normal color, abnormal (AV fistula in left upper extremity with palpable thrill) Peripheral Pulses: within normal limits - Abdominal General gastrointestinal: soft, non-tender, non-distended, normal bowel sounds - Integumentary Integumentary: Present: clear, warm, dry - Psychiatric Psychiatric: appropriate mood/affect, memory intact, cooperative, other (Limited insight on medical condition) - Neurologic Neurologic: CNII-XII intact, moves all extremities - Allied Health Allied health notes reviewed: nursing HEART Score - HEART Score Age: 45-65 Risk factors: > 3 risk factors or hx of atherosclerotic disease Troponin: 1-3x normal limit - Critical Actions Critical Actions: 4-6 pts:12-16.6% risk of adverse cardiac event. Should be admitted Results - Labs CBC & Chem 7: 08/06/21 05:21 08/06/21 05:21 Labs: Laboratory Last Values WBC 5.2 K/mm3 (4.5-11.0) 08/06/21 05:21 RBC 2.70 M/mm3 (3.65-5.03) L 08/06/21 05:21 Hgb 7.4 gm/dl (10.1-14.3) L 08/06/21 05:21 Hct 23.4 % (30.3-42.9) L 08/06/21 05:21 MCV 86 fl (79-97) 08/06/21 05:21 MCH 27 pg (28-32) L 08/06/21 05:21 MCHC 32 % (30-34) 08/06/21 05:21 RDW 17.7 % (13.2-15.2) H 08/06/21 05:21 Plt Count 217 K/mm3 (140-440) 08/06/21 05:21 Lymph % (Auto) 31.4 % (13.4-35.0) 08/06/21 05:21 [place] % (Auto) 11.4 % (0.0-7.3) H 08/06/21 05:21 Eos % (Auto) 4.1 % (0.0-4.3) 08/06/21 05:21 Baso % (Auto) 1.3 % (0.0-1.8) 08/06/21 05:21 Lymph # (Auto) 1.6 K/mm3 (1.2-5.4) 08/06/21 05:21 [place] # (Auto) 0.6 K/mm3 (0.0-0.8) 08/06/21 05:21 Eos # (Auto) 0.2 K/mm3 (0.0-0.4) 08/06/21 05:21 Baso # (Auto) 0.1 K/mm3 (0.0-0.1) 08/06/21 05:21 Seg Neutrophils % 51.8 % (40.0-70.0) 08/06/21 05:21 Seg Neutrophils # 2.7 K/mm3 (1.8-7.7) 08/06/21 05:21 Sodium 141 mmol/L (137-145) 08/06/21 05:21 Potassium 5.6 mmol/L (3.6-5.0) H 08/06/21 05:21 Chloride 102.7 mmol/L (98-107) 08/06/21 05:21 Carbon Dioxide 25 mmol/L (22-30) 08/06/21 05:21 Anion Gap 19 mmol/L 08/06/21 05:21 BUN 27 mg/dL (7-17) H 08/06/21 05:21 Creatinine 8.9 mg/dL (0.6-1.2) H 08/06/21 05:21 Estimated GFR 5 ml/min 08/06/21 05:21 BUN/Creatinine Ratio 3 % 08/06/21 05:21 Glucose 88 mg/dL (65-100) 08/06/21 05:21 Calcium 9.1 mg/dL (8.4-10.2) 08/06/21 05:21 Phosphorus 4.50 mg/dL (2.5-4.5) 08/06/21 05:21 Magnesium 1.60 mg/dL (1.7-2.3) L 08/06/21 05:21 Total Bilirubin 0.30 mg/dL (0.1-1.2) 08/05/21 04:28 AST 12 units/L (5-40) 08/05/21 04:28 ALT 6 units/L (7-56) L 08/05/21 04:28 Alkaline Phosphatase 136 units/L (35-129) H 08/05/21 04:28 Total Protein 6.4 g/dL (6.3-8.2) 08/05/21 04:28 Albumin 3.5 g/dL (3.9-5) L 08/05/21 04:28 Albumin/Globulin Ratio 1.2 % 08/05/21 04:28 Hepatitis A IgM Ab Non-reactive (NonReactive) 08/06/21 05:21 Hep Bs Antigen Nonreactive (Negative) 08/06/21 05:21 Hep B Core IgM Ab Non-reactive (NonReactive) 08/06/21 05:21 Hepatitis C Antibody Non-reactive (NonReactive) 08/06/21 05:21 Blood Type O POSITIVE 08/04/21 17:49 Antibody Screen Negative 08/04/21 17:49 Crossmatch See Detail 08/04/21 17:49 Soriano/IV: Voiding Method Toilet Active Medications - Current Medications Current Medications: Generic Name Dose Route Start Last Admin Trade Name Freq PRN Reason Stop Dose Admin Acetaminophen 650 mg 08/04/21 23:08 Acetaminophen 325 Mg Tab PO Q4H PRN Pain MILD(1-3)/Fever >100.5/STARR Amlodipine Besylate 10 mg 08/04/21 23:14 08/06/21 12:20 Amlodipine 10 Mg Tab PO 10 mg QDAY DAVID Administration Aspirin 81 mg 08/05/21 10:00 08/06/21 12:20 Aspirin Ec 81 Mg Tab PO 81 mg QDAY DAVID Administration Atorvastatin Calcium 80 mg 08/05/21 22:00 08/05/21 22:33 Atorvastatin 40 Mg Tab PO Not Given QHS [facility] Calcium Acetate 1,334 mg 08/06/21 12:00 Calcium Acetate 667 Mg Cap PO TIDWM [facility] Carvedilol 25 mg 08/05/21 10:00 08/06/21 12:20 Carvedilol 25 Mg Tab PO 25 mg BID DAVID Administration Famotidine 10 mg 08/05/21 10:00 08/06/21 12:20 Famotidine 10 Mg Tab PO Not Given BID [facility] Guaifenesin 10 ml 08/04/21 21:11 08/04/21 21:14 Guaifenesin Dm 200/20 Mg Oral Liqd 10 Ml PO 10 ml Q4H PRN Administration Cough Heparin Sodium (Porcine) 5,000 unit 08/05/21 10:00 08/06/21 12:21 Heparin 5,000 Unit/1 Ml Vial SUB-Q Not Given Q12HR DAVID Hydralazine HCl 10 mg 08/04/21 23:15 08/06/21 11:05 Hydralazine 20 Mg/1 Ml Inj IV 10 mg Q3H PRN Administration Blood Pressure Hydralazine HCl 100 mg 08/05/21 08:00 08/06/21 08:58 Hydralazine 100 Mg Tab PO 100 mg TID [facility] Administration Hydromorphone HCl 0.5 mg 08/04/21 23:08 08/05/21 17:50 Hydromorphone 1 Mg/1 Ml Inj IV 0.5 mg Q3H PRN Administration Pain , Severe (7-10) Isosorbide Mononitrate 60 mg 08/05/21 10:00 08/06/21 12:20 Isosorbide Mononitrate Er 60 Mg Tab PO 60 mg QDAY [facility] Administration Lidocaine/Prilocaine 1 applic 08/06/21 09:00 08/06/21 08:59 Emla Cream 5 Gm TP 1 applic [employer] PRN Administration hemodialysis Metoclopramide HCl 5 mg 08/04/21 23:08 Metoclopramide 10 Mg/2 Ml Inj IV Q6H PRN Nausea And Vomiting Ondansetron HCl 4 mg 08/04/21 23:08 Ondansetron 4 Mg/2 Ml Inj IV Q8H PRN Nausea And Vomiting Oxycodone/Acetaminophen 1 tab 08/04/21 23:08 Oxycodone /Acetaminophen 5-325mg Tab PO Q6H PRN Pain, Moderate (4-6) Sodium Chloride 10 ml 08/05/21 10:00 08/06/21 12:21 Sodium Chloride 0.9% 10 Ml Flush Syringe IV Not Given BID DAVID Sodium Chloride 10 ml 08/04/21 23:08 Sodium Chloride 0.9% 10 Ml Flush Syringe IV PRN PRN LINE FLUSH Valsartan 160 mg 08/04/21 23:45 08/06/21 12:20 Valsartan 160mg Tab PO 160 mg Q12HR DAVID Administration Nutrition/Malnutrition Assess - Dietary Evaluation Nutrition/Malnutrition Findings: Nutrition Notes Start: 08/05/21 14:55 Freq: Status: Active Protocol: Document 08/05/21 14:55 ISAC (Rec: 08/05/21 15:15 ISAC [id number]) Nutrition Notes Need for Assessment generated from: MD Order Initial or Follow up Assessment Current Diagnosis CKD (stage V CKD),Hypertension ,Hyperlipidemia Other Pertinent Diagnosis Acute respiratory failure associated with hypertensive condition. Current Diet Renal (since B 08/05). Labs/Tests 08/05: K 5.1, BUN 21, Cr 6.6. Pertinent Medications 08/05: Nutritionally unremarkable. Height 5 ft 4 in Weight 67.9 kg [place] Body Weight (kg) 54.54 BMI 25.7 Weight Status Appropriate Subjective/Other Information Pt is on hemodialysis. Percent of energy/protein needs met: Prescribed Renal Diet provides for energy/protein needs (2, 072 Kcal/77 g) during LOS. Burn Absent Trauma Absent GI Symptoms None Food Allergy No Skin Integrity/Comment Clear, warm, dry. Minimum of two criteria No physical signs of malnutrition #1 Nutrition Diagnosis No nutrition diagnosis at this time Comments: There are no indicators for new onset diabetes in Pt's chart. Is patient on ventilator? No Is Patient Ambulatory and/or Out of Bed Yes REE-([facility]-ambulatory/OOB) [ 1578.200 [id number]] Kcal/Kg value to use for calculation 30 Approximate Energy Requirements Using 2037 kcal/Kg Calculation Used for Recommendations Kcal/kg Additional Notes Protein: 1.0-1.2 g/Kg/day; 55- 65 g/day; 220-260 Kcal/day ( from IBW and HD). Fluids: 1.0 ml/Kcal/day, or as per MD. Nutrition Intervention Change Diet Order: Continue Renal Diet. Goal #1 Maintain body weight within +/ -3% of current BWt during LOS. Goal #2 Reach and maintain acceptable chemistry lab values during LOS. Follow-Up By: 08/12/21 Additional Comments Continue monitoring acceptance of foods, %PO intake of meals , Hydration, and BM. - Attestation Statement I have reviewed and agreed w/ Malnutrition eval & tx plan: Yes
[2021-08-06 14:11] VITALS: BP 190/80
--- NOTE | 2021-08-13 22:26 | Discharge Summary ---
Providers - Providers Date of Admission: 08/05/21 14:17 Date of discharge: 08/07/21 Attending physician: SHOLA ROCKWELL MD 08/04/21 23:17 Consult to Physician [CONS] Routine Comment: Consulting Provider: JESSY DENG Physician Instructions: Reason For Exam: ESRD Primary care physician: [employer] Hospitalization Reason for admission: Hypertensive emergency Condition: Stable Pertinent studies: Reviewed. Procedures: None. Hospital course: 66-year-old female with history of end-stage renal disease (on hemodialysis), hypertension and hyperlipidemia sent from the dialysis center for low blood count with hemoglobin of 7 who was found to be in hypertensive emergency. The patient received 1U pRBC for symptomatic anemia. The patient also presented with acute hypoxic respiratory failure requiring 2-3L nasal cannula. The patient was restarted on her antihypertensives and counseled on medication compliance. While hospitalized, Nephrology performed hemodialysis to assist with blood pressure control. The patient was safely discharged home. Disposition: 01 HOME / SELF CARE / HOMELESS Final Discharge Diagnosis (Prints w/discharge instructions): hypertensive emergency; acute hypoxic respiratory failure; symptomatic anemia; insulin- dependent diabetes mellitus Time spent for discharge: 40 minutes Core Measure Documentation - Palliative Care Palliative Care/ Comfort Measures: Not Applicable - Core Measures Any of the following diagnoses?: none - VTE Discharge Requirements Deep Vein Thrombosis/Pulmonary Embolism Present on Admission: No Has pt received <5 days of overlap therapy or INR<2.0: No (Not indicated) Anticoagulant overlap therapy prescribed at discharge: No Contraindication No Overlap Therapy order at DC: Not Indicated - Acute MD Discharge Requirements Aspirin at discharge: No Reason for no aspirin on DC: Medical contraindication CRISTELA/ARB for LVSD if EF <40%: Yes Beta ej at discharge: Yes Statin for LDL = or >100 mg/dl on DC: Yes - Heart Failure Discharge Requirements CRISTELA/ARB for LVSD if EF <40%: No Reason for no CRISTELA/ARB: Renal impairment Beta ej at discharge: Yes - Stroke Discharge Requirements Statin for LDL = or >70 mg/dl on DC: Yes Anticoag for atrial fib/atrial flutter: Not Applicable Reason for no anticoag for AF/F on DC: Not Indicated Antithrombotic for ischemic stroke: No Reason for no antithrombotic on DC: Not Indicated Exam - Constitutional Vitals: Temp Pulse Resp BP Pulse Ox 98.4 F 76 18 190/80 100 08/06/21 14:05 08/06/21 14:05 08/06/21 14:05 08/06/21 14:05 08/06/21 14:05 General appearance: Present: no acute distress, well-nourished - EENT Eyes: Present: PERRL, EOM intact ENT: hearing intact, clear oral mucosa, dentition normal - Neck Neck: Present: supple, normal ROM - Respiratory Respiratory effort: normal - Cardiovascular Rhythm: regular Heart Sounds: Present: S1 & S2 - Extremities Extremities: no ischemia, pulses intact, pulses symmetrical, No edema, normal temperature, normal color, abnormal (LUE av-fistula) Peripheral Pulses: within normal limits - Abdominal General gastrointestinal: Present: soft, non-tender, non-distended, normal bowel sounds Female genitourinary: Present: deferred - Rectal Rectal Exam: deferred - Integumentary Integumentary: Present: clear, warm, dry - Musculoskeletal Musculoskeletal: strength equal bilaterally - Psychiatric Psychiatric: appropriate mood/affect, memory intact, cooperative - Neurologic Neurologic: CNII-XII intact - Allied Health Allied health notes reviewed: nursing Plan Care Plan Goals: Patient discharging home safely. Assessment: Patient was admitted for symptomatic anemia (hemoglobin 7) and hypertensive emergency. Patient received 1 unit packed RBC transfusion upon admission. Blood pressure was controlled and patient underwent hemodialysis while inpatient. Follow up with: PRIMARY CARE, [Primary Care Provider] - 7 Days Prescriptions: amLODIPine 10 mg PO QDAY #30 tablet Valsartan [Diovan] 160 mg PO Q12HR #60 tablet
== END 2021-08-06 16:26 | disposition home or self-care (01) | DRG 304 ==
LOC: ED 13:49 → 3A 15:47 → 4A 21:51 → OBSVTOIN 08-05 14:17
PROVIDERS: ADMIT Internal Medicine; ATTEND Student in an Organized Health Care Education/Training Program
PROC: 30233N1 Transfusion of Nonautologous Red Blood Cells into Peripheral Vein, Percutaneous Approach (ICD-10-PCS; principal; 2021-08-05)
PROC: 5A1D70Z Performance of Urinary Filtration, Intermittent, Less than 6 Hours Per Day (ICD-10-PCS; 2021-08-06)
DX: I16.1 Hypertensive emergency (principal); N18.6 End stage renal disease; J96.01 Acute respiratory failure with hypoxia; I12.0 Hypertensive chronic kidney disease with stage 5 chronic kidney disease or end stage renal disease; Z99.2 Dependence on renal dialysis; D63.1 Anemia in chronic kidney disease; Z82.49 Family history of ischemic heart disease and other diseases of the circulatory system; E78.5 Hyperlipidemia, unspecified; Z20.822 Contact with and (suspected) exposure to COVID-19
CPT/HCPCS: 36415; 80048; 80053; 80074; 83735; 84100; 85025; 85027; 86850; 86900; 86901; 86920; G0378; J0360; J1170; J1644; J2270; J3010; J7040; P9016; U0003